=== PATIENT | female | born 1965 | race African-American/Black ===

== ENCOUNTER 2019-01-02 20:08 | Emergency (ER) | payer OTHER ==
[~2019-01-02] VITALS: Ht 162.6 cm; Wt 79.4 kg
--- NOTE | 2019-01-02 20:20 | NUR ---
came in by self walking .aaox4/maex4. seen/examined by kirill mello at bedside .
[2019-01-02] MEDS ORDERED: HYDROMORPHONE 1 MG/1 ML DISP.SYRIN IM ONE (20:30)
[2019-01-02] MEDS ORDERED: ONDANSETRON 4 MG/2 ML VIAL IM ONE (20:30)
[2019-01-02] MEDS ORDERED: ONDANSETRON 4 MG/2 ML VIAL ONE (20:44)
[2019-01-02] MEDS ORDERED: HYDROMORPHONE 2 MG/1 ML DISP.SYRIN ONE (20:44)
--- NOTE | 2019-01-02 21:51 | NUR ---
Patient discharged to home in stable conditon. Written and verbal after care instructions given. Patient verbalizes understanding of instructions.INSTRUCTED NOT TO DRIVE ,WALKED TO WAITING ROOM FOR SON SERGEI TO PICK HER UP .V/S WNL .NO PAIN VERBALIZED . ABLE TO WALK WITH STEADY GAIT .
[2019-01-02 21:54] VITALS: BP 140/75
== END 2019-01-02 21:55 | disposition home or self-care (01) ==
LOC: ER 20:08
DX: G43.909 Migraine, unspecified, not intractable, without status migrainosus (principal)
CPT/HCPCS: 96372 ×2; 99283; J1170; J2405; A4663

== ENCOUNTER 2019-11-27 20:32 | Emergency (ER) | payer OTHER ==
[~2019-11-27] VITALS: Ht 162.6 cm; Wt 79.4 kg
[2019-11-27] MEDS ORDERED: FLUORESCEIN SODIUM 1 MG STRIP OP ONE (20:45)
[2019-11-27] MEDS ORDERED: FLUORESCEIN SODIUM 1 MG STRIP ONE (20:47)
[2019-11-27] MEDS ORDERED: SULFACETAMIDE SOD 10% OPHT DR 15 ML BOTTLE ONE (20:53)
--- NOTE | 2019-11-27 20:58 | NUR ---
Patient discharged to home in stable condition. Written and verbal after care instructions given. Patient verbalizes understanding of instructions. Stressed follow up or return to ER for worsening s/s. aa/ox4. able to speak in complete sentences no s/s of distress ambulatory with steady gait all belongings with pt
[2019-11-27 20:59] VITALS: BP 150/103
[2019-11-27] MEDS ORDERED: SULFACETAMIDE SOD 10% OPHT DR 15 ML BOTTLE OP ONE (21:00)
== END 2019-11-27 21:00 | disposition home or self-care (01) ==
LOC: ER 20:33
DX: S05.01XA Injury of conjunctiva and corneal abrasion without foreign body, right eye, initial encounter (principal); X58.XXXA Exposure to other specified factors, initial encounter; Y92.89 Other specified places as the place of occurrence of the external cause
CPT/HCPCS: A4663